=== PATIENT | female | born 1985 | race Caucasian/White ===

== ENCOUNTER 2016-08-02 21:56 | Emergency (ER) | payer MEDICAID ==
[~2016-08-02] VITALS: Ht 160 cm; Wt 83.6 kg
[2016-08-02 22:01] VITALS: BP 137/86
--- NOTE | 2016-08-03 01:04 | NUR ---
Patient ambulated to bed 04.
--- NOTE | 2016-08-03 01:15 | NUR ---
31Y/F PATIENT PRESENTS TO ED WITH C/O ABDOMINAL PAIN X 2 DAYS. PT STATES HAVING PERIOD SINCE 08/10/16, WITH ABDOMINAL PAIN, FEELING NAUSEAS, NOF FEVER, NO DIARRHEA; SKIN IS PINK/WARM/DRY; AAOX4 WITH EVEN AND STEADY GAIT; LUNGS CLEAR BL; HR EVEN AND REGULAR; PT DENIES ANY FEVER, CP, SOB, OR COUGH AT THIS TIME; PATIENT STATES PAIN OF 9/10 AT THIS TIME; VSS; PATIENT POSITIONED FOR COMFORT; HOB ELEVATED; BEDRAILS UP X2; BED DOWN. ER MD MADE AWARE OF PT STATUS.
--- NOTE | 2016-08-03 01:18 | NUR ---
Dr. Jackson evaluating patient at bedside.
[2016-08-03 01:42] LABS: HEMATOCRIT 37.3 % (36-48); HEMOGLOBIN 12.4 g/dL (12.0-16.0); MEAN CORPUSCULAR HEMOGLOBIN 28 pg (27-31); MEAN CORPUSCULAR HGB CONC 33 g/dL (33-37); MEAN CORPUSCULAR VOLUME 84 fL (80-94); PLATELET COUNT (AUTO) 287 K/uL (140-450); RED BLOOD CELL COUNT(AUTO) 4.46 MIL/uL (4.20-5.40); RED CELL DISTRIBUTION WIDTH 13.4 % (11.6-13.7); WHITE BLOOD COUNT (AUTO) 11.9 K/uL (4.8-10.8)
[2016-08-03 01:43] LABS: APPEARANCE,URINE CLOUDY (CLEAR); BILIRUBIN,URINE 1+ (NEGATIVE); BLOOD, URINE 3+ (NEGATIVE); COLOR,URINE RED (YELLOW); LEUKOCYTE ESTERASE ,URINE NEGATIVE (NEGATIVE); NITRITE, URINE NEGATIVE (NEGATIVE); PROTEIN,URINE 2+ (NEGATIVE); UGLUCOSE NEGATIVE (NEGATIVE)
[2016-08-03 01:52] LABS: ICTOTEST NEGATIVE (NEGATIVE)
[2016-08-03 01:53] LABS: ANION GAP 13.8 (8-16); BACTERIA,URINE OCCASSIONAL /HPF (None Seen); CALCIUM 8.6 mg/dL (8.5-10.1); CREATININE 0.8 mg/dL (0.6-1.3); POTASSIUM 3.8 mmol/L (3.5-5.1); RBC,URINE TOO NUMEROUS TO COUN /HPF (0-5); SQUAMOUS EPITHELIAL CELL,UR 4-10 (MOD) /LPF (0-3 (FEW)); WBC,URINE 0-5 (RARE) /HPF (0-5)
[2016-08-03 01:59] LABS: ALBUMIN 3.6 g/dL (3.4-5.0); TOTAL BILIRUBIN 0.2 mg/dL (0.0-1.0); TOTAL PROTEIN, SERUM 7.8 g/dL (6.4-8.2)
[2016-08-03 02:02] LABS: BASOPHILS % (MANUAL) 1 % (0-2); EOSINOPHILS % (MANUAL) 1 % (0-4); LYMPHOCYTES % (MANUAL) 25 % (20-46); MONOCYTES % (MANUAL) 4 % (5-12); NEUTROPHILS % (MANUAL) 69 (43-65)
--- NOTE | 2016-08-03 02:27 | NUR ---
PT SENT TO CT WITH TECH AAOX4
--- NOTE | 2016-08-03 02:41 | NUR ---
Patient back from CT via wheelchair per tech.
[2016-08-03] MEDS ORDERED: HYDROcodone/APAP 10/325 MG 1 TAB TAB PO ONE (04:10)
[2016-08-03 04:30] VITALS: BP 124/81
--- NOTE | 2016-08-03 04:30 | NUR ---
Patient discharged with v/s stable. Written and verbal after care instructions given and explained. Patient alert, oriented and verbalized understanding of instructions. Ambulatory with steady gait. All questions addressed prior to discharge. ID band removed. Patient advised to follow up with PMD. Rx of NORCO 5/325 MG given. Patient educated on indication of medication including possible reaction and side effects. Opportunity to ask questions provided and answered.
== END 2016-08-03 04:30 | disposition home or self-care (01) ==
LOC: MED 21:56
DX: R10.31 Right lower quadrant pain (principal); R50.9 Fever, unspecified; R11.0 Nausea
CPT/HCPCS: 36415; 74177; 76856; 80053; 81001; 81025; 83690; 85025; 87086; 99285; Q0092; Q9967

== ENCOUNTER 2017-04-08 18:04 | Emergency (ER) | payer MEDICAID ==
[~2017-04-08] VITALS: Ht 157.5 cm; Wt 83.5 kg
[2017-04-08 18:11] VITALS: BP 123/77
--- NOTE | 2017-04-08 18:14 | NUR ---
PT SENT TO LOBBY TO WAIT FOR ED BED. [facility] SPECIMEN CUP PROVIDED
[2017-04-08 18:40] LABS: BILIRUBIN,URINE NEGATIVE (NEGATIVE); BLOOD, URINE NEGATIVE (NEGATIVE); COLOR,URINE YELLOW (YELLOW); LEUKOCYTE ESTERASE ,URINE NEGATIVE (NEGATIVE); NITRITE, URINE NEGATIVE (NEGATIVE); UGLUCOSE NEGATIVE (NEGATIVE)
--- NOTE | 2017-04-08 18:48 | NUR ---
PATIENT PRESENTS TO ED WITH C/O LOWER ABD BURNING TYPE PAIN. PT STATES SHE HAS DIARRHEA THAT STARTED TODAY. DENIES N/V/; SKIN IS PINK/WARM/DRY; AAOX4 WITH EVEN AND STEADY GAIT; LUNGS CLEAR BL; HR EVEN AND REGULAR; PT DENIES ANY FEVER, CP, SOB, OR COUGH AT THIS TIME; PATIENT STATES PAIN OF 6/10 AT THIS TIME; PATIENT POSITIONED FOR COMFORT; HOB ELEVATED; BEDRAILS UP X2; BED DOWN. ER MD MADE AWARE OF PT STATUS.
[2017-04-08 18:49] LABS: APPEARANCE,URINE CLEAR (CLEAR)
--- NOTE | 2017-04-08 19:19 | NUR ---
Pt report given to DYLAN BERNARDO. Transfer of care at this time.
--- NOTE | 2017-04-08 19:20 | NUR ---
REPORT RECEIVED FROM TOVA DOUGHERTY
[2017-04-08] MEDS ORDERED: KETOROLAC 30 MG/ML VIAL IVP ONE (20:05)
[2017-04-08] MEDS ORDERED: KETOROLAC 30 MG/ML VIAL IM ONE (20:45)
[2017-04-08 20:54] LABS: BASOPHILS # (AUTO) 0.2 K/uL (0.00-0.22); BASOPHILS % (AUTO) 1.4 % (0.0-2.0); EOSINOPHILS # (AUTO) 0.1 K/uL (0-0.4); EOSINOPHILS % (AUTO) 0.9 % (0.0-4.0); HEMATOCRIT 38.2 % (36-48); HEMOGLOBIN 12.7 g/dL (12.0-16.0); LYMPHOCYTES # (AUTO) 2.8 K/uL (2.5-16.5); LYMPHOCYTES % (AUTO) 20.7 % (20.5-51.1); MEAN CORPUSCULAR HEMOGLOBIN 28 pg (27-31); MEAN CORPUSCULAR HGB CONC 33 g/dL (33-37); MEAN CORPUSCULAR VOLUME 83 fL (80-94); MONOCYTES # (AUTO) 0.8 K/uL (0.8-1.0); MONOCYTES % (AUTO) 5.8 % (1.7-9.3); NEUTROPHILS # (AUTO) 9.7 K/uL (1.8-7.7); NEUTROPHILS % (AUTO) 71.2 % (42.2-75.2); PLATELET COUNT (AUTO) 289 K/uL (140-450); RED CELL DISTRIBUTION WIDTH 12.8 % (11.6-13.7); WHITE BLOOD COUNT (AUTO) 13.6 K/uL (4.8-10.8)
[2017-04-08 20:56] LABS: ANION GAP 12.4 (8-16); CARBON DIOXIDE 28.4 mmol/L (21-32); CREATININE 0.7 mg/dL (0.6-1.3); POTASSIUM 3.8 mmol/L (3.5-5.1)
[2017-04-08 21:02] LABS: ALBUMIN 3.5 g/dL (3.4-5.0); TOTAL BILIRUBIN 0.2 mg/dL (0.0-1.0)
--- NOTE | 2017-04-08 23:02 | NUR ---
Patient discharged with v/s stable. Written and verbal after care instructions given and explained. Patient alert, oriented and verbalized understanding of instructions. Ambulatory with steady gait. All questions addressed prior to discharge. ID band removed. Patient advised to follow up with PMD. Rx of XANAX AND IBUPROFEN given. Patient educated on indication of medication including possible reaction and side effects. Opportunity to ask questions provided and answered.
[2017-04-08 23:05] VITALS: BP 121/69
--- NOTE | 2017-04-08 23:10 | NUR ---
Note keiraklaus in EDM - 04/08/17 at 2311 by PATI Patient discharged with v/s stable. Written and verbal after care instructions given and explained. Patient alert, oriented and verbalized understanding of instructions. Ambulatory with steady gait. All questions addressed prior to discharge. ID band removed. Patient advised to follow up with PMD. Rx of NAPROSYN given. Patient educated on indication of medication including possible reaction and side effects. Opportunity to ask questions provided and answered.
== END 2017-04-08 23:05 | disposition home or self-care (01) ==
LOC: MED 18:04
DX: R10.30 Lower abdominal pain, unspecified (principal); R19.7 Diarrhea, unspecified; F41.9 Anxiety disorder, unspecified
CPT/HCPCS: 36415; 74176; 80053; 81003; 81025; 83690; 84703; 85025; 96372; 99285; J1885

== ENCOUNTER 2017-08-13 07:36 | Emergency (ER) | payer MEDICAID ==
[~2017-08-13] VITALS: Ht 160 cm; Wt 85.4 kg
[2017-08-13 07:46] VITALS: BP 117/75
--- NOTE | 2017-08-13 07:50 | NUR ---
PT AMBUALTES TO BED 10
--- NOTE | 2017-08-13 07:57 | NUR ---
PT. CAME INTO THE ED W/ C/O ANXIETY X 2 WEEKS. PT. STATES " MY DAUGHTER JANUARY 15, 2017, AND EVER SINCE THEN I HAVE SUFFERED FROM ANXIETY, I DO NOT HAVE A PRIMARY CARE DOCTOR AND I RAN OUT OF MEDICATION, SO MY ANXIETY HAS GOTTEN WORSE THE LAST 2 WEEKS". PT. DENIES ANY THOUGHTS OF HURTING SELF OR OTHERS. PT. AAOX4, DENIES CHEST PAIN, DENIES N/V/D, DENIES SOB. PT. COMPLAINS OF ITCHYNESS THAT STARTED WITH HER ANXIETY. DENIES ANY OTHER MED HX. ER MD NOTIFIED. SAFETY PRECAUTIONS INITIATED.WILL CONTINUE TO MONITOR.
[2017-08-13] MEDS ORDERED: NACL 0.9% 1,000 ML IV ONE (08:25)
[2017-08-13] MEDS ORDERED: diphenhydrAMINE 50 MG/ML VIAL IVP ONE (08:25)
--- NOTE | 2017-08-13 09:00 | NUR ---
PT. RESTING COMFORTABLY IN BED, RR EVEN AND UNLABORED. BED IN LOWEST POSITION. WILL CONTINUE TO MONITOR.
--- NOTE | 2017-08-13 10:15 | NUR ---
PT. IS AAOX4, RR EVEN AND UNLABORED , BED IN LOWEST POSITION. WILL CONTINUE TO MONITOR.
[2017-08-13 10:35] VITALS: BP 108/61
--- NOTE | 2017-08-13 10:35 | NUR ---
Patient discharged with v/s stable. Written and verbal after care instructions given and explained. Patient alert, oriented and verbalized understanding of instructions. Ambulatory with steady gait. All questions addressed prior to discharge. ID band removed. Patient advised to follow up with PMD. Rx of BENADRYL given. Patient educated on indication of medication including possible reaction and side effects. Opportunity to ask questions provided and answered.
== END 2017-08-13 10:35 | disposition home or self-care (01) ==
LOC: MED 07:36
DX: F41.9 Anxiety disorder, unspecified (principal); L29.9 Pruritus, unspecified
CPT/HCPCS: 96374; 99285; J1200